=== PATIENT | female | born 2000 | race Caucasian/White ===

== ENCOUNTER 2023-06-07 08:00 | Outpatient (CLI) | payer OTHER | END 2023-06-07 08:15 | disposition home or self-care (01) | LOC: LAB.N 08:00 | PROVIDERS: ATTEND Physician Assistant Medical | DX: J02.9 Acute pharyngitis, unspecified (principal) | CPT/HCPCS: 87070 ==

== ENCOUNTER 2023-07-03 10:44 | Emergency (ER) | payer OTHER ==
--- NOTE | 2023-07-03 11:02 | ED Physician Documentation ---
PD HPI UPPER EXT INJURY - Stated complaint Stated Complaint: LT RING FINGER LAC - Chief complaint Chief Complaint: Laceration - History obtained from History obtained from: Patient - History of Present Illness Location: Left, Finger (cut finger at DIP crease radial side with knife while cutting food at home for breakfast. Bandaged with pressure right away due to bleeding.) Where injury occurred: Home Timing - onset: How many minutes ago (30), Today Timing - details: Abrupt onset, Still present Worsened by: Moving, Palpating Associated symptoms: Numbness (in finger just distal to the lac). 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 : None HEENT: None Psych: None Musculoskeletal: None Derm: None - Past Surgical History Past Surgical History: No - Present Medications Home Medications: Ambulatory Orders Medication Instructions Recorded Confirmed No Known Home Medications 07/03/23 07/03/23 - Allergies Allergies/Adverse Reactions: Allergies Allergy/AdvReac Type Severity Reaction Status Date / Time No Known Drug Allergies Allergy Verified 07/03/23 10:53 - Social History Does the pt smoke?: No Smoking Status: Never smoker Does the pt drink ETOH?: Yes Does the pt have substance abuse?: No - Immunizations Immunizations are current?: Yes PD ED PE NORMAL - Vitals Vital signs reviewed: Yes - General General: Alert and oriented X 3, No acute distress, Well developed/nourished - Derm Derm: Normal color, Warm and dry - Extremities Extremities: Other (left ring finger with lac radial palmar side to fatty tissue. Does not appear to go to tendons nor deeper layer. Mild bleeding only. Less sensation to touch distal to lac on that side. Other side with normal sensation. Pt able to flex against resistance at DIP. ) - Neuro Neuro: Alert and oriented X 3, No motor deficit, Normal speech Results - Vitals Vitals: Vital Signs - 24 hr 07/03/23 07/03/23 10:55 11:52 Temperature 36.5 C Heart Rate 100 72 Respiratory 16 18 Rate Blood Pressure 119/70 119/78 O2 Saturation 100 99 Oxygen O2 Source Room air Procedures - Laceration (location) left ring finger Length in cm: 1.2 Wound type: Linear, Into subcut fat, Clean Neurovascular status: Motor intact, Vascular intact, Other (decreased sensation distal to the lac on radial side.) Tendon involvement: Tendon Injury Anesthesia: Lidocaine 1% Wound preparation: Wound explored, To the base, Other (clenased with tap water.) Skin layer closure: Nylon, Interrupted, Size #-0 - enter number (4), Sutures - enter # (5) Other: Patient tolerated well, No complications, Dressing applied, Tetanus UTD PD Medical Decision Making - ED course Complexity details: considered differential (cut elie with knife at home this morning. Lac to DIP of ring finger with some bleeding and decreased sensation. No movement problem. Wound with some bleeding and at flexion crease, so not amenable to steristrips nor glue. Shared decision with pt for suturing. DOne without problems. ), d/w patient Departure - Departure Disposition: 01 Home, Self Care Clinical Impression: Finger laceration, Numbness of finger Condition: Stable Record reviewed to determine appropriate education?: Yes Instructions: ED Laceration Hand Comments: It is okay to wash and shower. Clean off the wound twice a day with soap and water, or peroxide and water. Apply some antibiotic ointment to it to keep it moist. Also to watch for signs of infection such as purulence, redness or increasing pain. Return to your primary care or the ER at the specified time for suture removal. Suture removal 8 to 10 days. The numbness in the finger beyond the laceration may be related to just some inflammation or pressure from the dressing. This may return in the next day or 2. The wound does not necessarily appear deep enough to be to the nerve or tendon layer. However it is possible that you hit the skin nerve branch in that area. Typically the surrounding nerve sensation and nerve endings will creep into that area over several months to take over the sensation in that spot. It is not a large enough area of nerve to be able to be repairable per se. There is no signs of tendon injury but will be sore with flexion. Gentle use of the finger initially and then progressed to more normal as able even while the sutures are still in. Tylenol or ibuprofen as needed for pains. Forms: PCP List Discharge Date/Time: 07/03/23 11:53
[2023-07-03 12:07] VITALS: BP 119/78; O2SAT 99
== END 2023-07-03 11:53 | disposition home or self-care (01) ==
LOC: ED 10:44
DX: S61.215A Laceration without foreign body of left ring finger without damage to nail, initial encounter (principal); W26.0XXA Contact with knife, initial encounter; Y93.G1 Activity, food preparation and clean up; Y92.000 Kitchen of unspecified non-institutional (private) residence as the place of occurrence of the external cause; R20.0 Anesthesia of skin
CPT/HCPCS: 12001; 99281